=== PATIENT | male | born 1965 | race Two or more races ===

== ENCOUNTER 2018-09-06 23:02 | Emergency (ER) | payer MEDICAID, OTHER ==
[~2018-09-06] VITALS: Ht 177.8 cm; Wt 80.3 kg
[2018-09-06 23:05] VITALS: BP 158/90
[2018-09-06] MEDS ORDERED: LIDOCAINE-MPF 1%, 5ML ONE (23:12)
[2018-09-06] MEDS ORDERED: LIDOCAINE 1%, 10ML INFIL ONE (23:30)
[2018-09-07] MEDS ORDERED: BACITRACIN ZINC OINT 500U/GM, 0.9 GM ONE (00:09)
== END 2018-09-07 00:17 | disposition home or self-care (01) ==
LOC: ED 23:59
DX: S61.217A Laceration without foreign body of left little finger without damage to nail, initial encounter (principal); F17.200 Nicotine dependence, unspecified, uncomplicated; W26.0XXA Contact with knife, initial encounter; Y93.89 Activity, other specified; Y99.8 Other external cause status; Y92.009 Unspecified place in unspecified non-institutional (private) residence as the place of occurrence of the external cause
CPT/HCPCS: 12041